=== PATIENT | female | born 1970 | race Caucasian/White ===

== ENCOUNTER 2016-03-03 13:02 | Emergency (ER) | payer BC ==
--- NOTE | 2016-03-03 13:36 | ED NURSING NOTES ---
Clinical Report - Nurses [facility] [address] [place] [address] 03/03/2016 13:02 Patient: LOUIS WEISS TRIAGE Triage time 13:11 Mar 03 2016. Acuity: LEVEL 3. Chief Complaint: (cough and short of breath). 13:14 03/03/16. --13:14 Rosa Maria Norman R.N. 13:10 03/03/16. BP: 151/92. HR: 82. RR: 20. O2 saturation: 100%. Temp: 98.1 F. Pain level now: 10/08. --13:14 Rosa Maria Norman R.N. Weight: 87.5 kg stated. Height/Length: 65 inches Per Patient. BMI: 32.1. --13:09 Rosa Maria Norman R.N. Medications Albuterol Sulfate Inhalation. Atrovent HFA Inhalation. Flovent HFA Inhalation. Levothyroxine Sodium Oral, daily. Lisinopril Oral. NexIUM Oral. --13:13 Rosa Maria Norman R.N. Allergies Amoxicillin. Baclofen. Erythromycin. Hydrochlorothiazide. Latex. Zofran. --13:13 Rosa Maria Norman R.N. Medication/allergy information source: the patient. --13:14 Rosa Maria Norman R.N. History Arrived by private vehicle. Historian: patient. Accompanied by friend. Primary physician (Kendra). Onset. (5 days ago, worse since wednesday). She has had weakness, a cough and difficulty breathing. Reports muscle aches. No fever or skin rash. 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 PAST MEDICAL HX: The patient has had a hysterectomy. SOCIAL HX: Former smoker. Occasional alcohol use. No drug use. No infectious disease exposure. ABUSE ASSESSMENT: No report of abuse. SELF HARM ASSESSMENT: A self harm assessment was performed. The patient answered "no" to the question "Have you recently felt down, depressed, or hopeless?", "Have you noticed less interest or pleasure in doing things?", "Do you have thoughts of harming or killing yourself?", "Are you here because you tried to hurt yourself?", "Have you ever tried to hurt yourself before today?", "Have you recently had thoughts about harming or killing others?" and "Do you have any dangerous items in your possession?". FALL RISK ASSESSMENT: Fall risk assessment completed. No fall risk identified. NUTRITIONAL RISK ASSESSMENT: The nutritional risk assessment revealed no deficiencies. FUNCTIONAL ASSESSMENT: Functional assessment: no impairments noted. LEARNING NEEDS ASSESSMENT: The learning needs assessment revealed no barriers. SKIN INTEGRITY ASSESSMENT: Skin integrity risk assessment completed. No skin integrity risk identified. --13:14 Rosa Maria Norman R.N. PROBLEMS: Otitis Media. Thyroid Disease. Myofascial Strain. DVT - Deep Venous Thrombosis. Depression. Fibromyalgia. Hypertension. Asthma. --13:13 Rosa Maria Norman R.N. ADDITIONAL SURGERIES: Bladder Suspension. Hysterectomy. Nasal septoplasty. Thyroid Surgery. --13:13 Rosa Maria Norman R.N. Interventions ID band on patient. --13:14 Rosa Maria Norman R.N. PHYSICAL ASSESSMENT 13:20 03/03/16. Ambulatory to room. GENERAL / NEURO / PSYCH: Alert. Oriented X 4. HEENT: Pupils equal, round and reactive to light. No facial asymmetry noted. No pharyngeal erythema. No sinus tenderness present or nasal discharge. Mucous membranes are pink. RESPIRATORY: Respirations not labored. The patient can speak in full sentences. Chest nontender. Expiratory wheezes in the right and left upper lung posteriorly (quiet). ( pain in mid chest with cough). CVS: Capillary refill less than 2 seconds. Pulses within normal limits. GI / : Abdomen soft. SKIN: Skin intact. Skin is warm and dry. Normal skin turgor. --13:20 Rosa Maria Norman R.N. NURSING PROGRESS NOTES 13:16 03/03/16. The initial plan of care for this patient includes an assessment with efforts to address the presence of pain; impairment of the respiratory system. This plan of care was discussed with the patient. Patient gowned. Reassurance given. Two patient identifiers checked. Call light placed in reach. Side rails up x 1. Bed placed in lowest position. Brakes of bed on. Patient ready for evaluation. --13:16 Rosa Maria Norman R.N. 13:50 03/03/16. ( Patient now reporting sulfa allergy. DC meds to be changed by WELDER HELPER). --13:50 Rosa Maria Norman R.N. DISPOSITION / DISCHARGE 13:53 03/03/16. Condition at departure: unchanged and stable. The goals identified in the patient's plan of care were met. No learning barriers present. Reviewed medication(s) side effects, precautions, dosing and course information. Prescription(s) given to the patient. Reviewed referral to a primary care physician for followup. Summary of care provided to patient. Patient verbalized understanding. Written instructions provided in [place]ian. The patient was discharged home and accompanied by paper reclaiming machine operator. She left the Emergency Department ambulatory and via private vehicle. Director Of Manufacturing driving. FALL RISK ASSESSMENT: Fall risk assessment completed. No fall risk identified. --13:53 Rosa Maria Norman R.N. 13:10 03/03/16. BP: 151/92. HR: 82. RR: 20. O2 saturation: 100%. Temp: 98.1 F. Pain level now: 10/08. --13:53 Rosa Maria Norman R.N. Departure time: 13:53 Mar 03 2016. --13:53 Rosa Maria Norman R.N. Locked/Released at 03/03/2016 13:54 by Rosa Maria Norman R.N.
--- NOTE | 2016-03-03 13:36 | ED CLINICAL REPORT ---
Clinical Report - Physicians/Mid Levels [facility] [address] [place] [address] 03/03/2016 13:02 Patient: LOUIS WEISS Time Seen: 13:27; initial patient contact, initial documentation, patient care assumed. Arrived- By private vehicle. Historian- patient. HISTORY OF PRESENT ILLNESS Chief Complaint: WHEEZING and HISTORY OF ASTHMA. This started about 5 days ago and is still present. The dyspnea is described as mild. The patient has had a moderate dry cough. No sputum production, orthopnea or chest pain or discomfort. See nurses notes for current asthma threapy. Asthma triggers: unknown. Takes asthma medications (inhaled albuterol, albuterol by nebulizer) (states this feels more than just her asthma, she feels like she is getting pneumonia). Similar symptoms previously: Chronically, worse. Recent medical care: Not recently seen/assessed. REVIEW OF SYSTEMS No sore throat, nasal discharge, sinus drainage or chills. She has had fever of 100 F and mild, generalized muscle aches. All systems otherwise negative, except as recorded above. PAST HISTORY See nurses notes. PROBLEMS: Otitis Media. Thyroid Disease. Myofascial Strain. DVT - Deep Venous Thrombosis. Depression. Fibromyalgia. Hypertension. Asthma. --13:13 Rosa Maria Norman R.N. ADDITIONAL SURGERIES: Bladder Suspension. Hysterectomy. Nasal septoplasty. Thyroid Surgery. --13:13 Rosa Maria Norman R.N. SOCIAL HISTORY Former smoker. Occasional alcohol use. No drug use. No recent travel. Is a local resident. FAMILY HISTORY Negative. ADDITIONAL NOTES The nursing notes have been reviewed with agreement regarding the chief complaint, HPI, ROS, PMH and patient medications and allergies. PHYSICAL EXAM Vital Signs: 03/03/2016 13:10 BP: 151/92. HR: 82. RR: 20. O2 saturation: 100%. Temp: 98.1 F. Pain level now: 8/10. Have been reviewed as abnormal and appear to be correct. Hypertensive. Heart rate normal. Respiratory rate normal. Temperature normal. Oxygen saturation normal. Appearance: Alert. No acute distress. Eyes: Pupils equal, round and reactive to light. Eyes normal inspection. ENT: Ears normal. Nose normal. Pharynx normal. Uvula midline. Neck: Normal inspection. Neck supple. CVS: Normal heart rate and rhythm. Heart sounds normal. Pulses normal. Respiratory: No respiratory distress. Breath sounds abnormal. Inspiratory mild wheezes in the right lung base posteriorly (very mild). Abdomen: Mildly obese. Back: Normal inspection. Skin: Skin warm and dry. Normal skin color. No rash. Normal skin turgor. Extremities: Extremities exhibit normal ROM. No lower extremity edema. Neuro: Oriented X 3. No motor deficit. No sensory deficit. PROGRESS AND PROCEDURES Patient counseled in person regarding the patient's stable condition and diagnosis. 13:36. Differential Diagnosis: Other possible considerations: asthma, flu, viral illness, uri, sinusitis, bronchitis, pneumonia. Above considerations are based on history and physical exam. Differential diagnosis was discussed with patient. Disposition: Discharged home in good and unchanged condition (13:36). Condition: good and stable. CLINICAL IMPRESSION Acute bacterial bronchitis associated with asthma. INSTRUCTIONS Alternate Tylenol (Acetaminophen) and Motrin (Ibuprofen) for fever, temperature greater than 101 degrees orally. Take according to label instructions. Avoid tobacco smoke. Warnings: GENERAL WARNINGS: Return or contact your physician immediately if your condition worsens or changes unexpectedly, if not improving as expected, or if other problems arise. Specifically return if problem worsens. Prescription Medications: Prednisone 20 mg: take 3 orally every day for 5 days. Dispense fifteen (15). No refills. Keflex 500 mg: take 1 capsule orally every 8 hours for 10 days. No refill. Follow-up: Follow up with your doctor in about three days even if well. Call for an appointment. Summary of care provided to patient. Understanding of the discharge instructions verbalized by patient. (Electronically signed by Sylwia Kimball A.R.N.P. 03/03/2016 14:25)
--- NOTE | 2016-03-03 13:36 | ED NURSING NOTES ---
Clinical Report - Nurses [facility] [address] [place] [address] 03/03/2016 13:02 Patient: LOUIS WEISS TRIAGE Triage time 13:11 Mar 03 2016. Acuity: LEVEL 3. Chief Complaint: (cough and short of breath). 13:14 03/03/16. --13:14 Rosa Maria Norman R.N. 13:10 03/03/16. BP: 151/92. HR: 82. RR: 20. O2 saturation: 100%. Temp: 98.1 F. Pain level now: 10/08. --13:14 Rosa Maria Norman R.N. Weight: 87.5 kg stated. Height/Length: 65 inches Per Patient. BMI: 32.1. --13:09 Rosa Maria Norman R.N. Medications Albuterol Sulfate Inhalation. Atrovent HFA Inhalation. Flovent HFA Inhalation. Levothyroxine Sodium Oral, daily. Lisinopril Oral. NexIUM Oral. --13:13 Rosa Maria Norman R.N. Allergies Amoxicillin. Baclofen. Erythromycin. Hydrochlorothiazide. Latex. Zofran. --13:13 Rosa Maria Norman R.N. Medication/allergy information source: the patient. --13:14 Rosa Maria Norman R.N. History Arrived by private vehicle. Historian: patient. Accompanied by friend. Primary physician (Kendra). Onset. (5 days ago, worse since wednesday). She has had weakness, a cough and difficulty breathing. Reports muscle aches. No fever or skin rash. 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 PAST MEDICAL HX: The patient has had a hysterectomy. SOCIAL HX: Former smoker. Occasional alcohol use. No drug use. No infectious disease exposure. ABUSE ASSESSMENT: No report of abuse. SELF HARM ASSESSMENT: A self harm assessment was performed. The patient answered "no" to the question "Have you recently felt down, depressed, or hopeless?", "Have you noticed less interest or pleasure in doing things?", "Do you have thoughts of harming or killing yourself?", "Are you here because you tried to hurt yourself?", "Have you ever tried to hurt yourself before today?", "Have you recently had thoughts about harming or killing others?" and "Do you have any dangerous items in your possession?". FALL RISK ASSESSMENT: Fall risk assessment completed. No fall risk identified. NUTRITIONAL RISK ASSESSMENT: The nutritional risk assessment revealed no deficiencies. FUNCTIONAL ASSESSMENT: Functional assessment: no impairments noted. LEARNING NEEDS ASSESSMENT: The learning needs assessment revealed no barriers. SKIN INTEGRITY ASSESSMENT: Skin integrity risk assessment completed. No skin integrity risk identified. --13:14 Rosa Maria Norman R.N. PROBLEMS: Otitis Media. Thyroid Disease. Myofascial Strain. DVT - Deep Venous Thrombosis. Depression. Fibromyalgia. Hypertension. Asthma. --13:13 Rosa Maria Norman R.N. ADDITIONAL SURGERIES: Bladder Suspension. Hysterectomy. Nasal septoplasty. Thyroid Surgery. --13:13 Rosa Maria Norman R.N. Interventions ID band on patient. --13:14 Rosa Maria Norman R.N. PHYSICAL ASSESSMENT 13:20 03/03/16. Ambulatory to room. GENERAL / NEURO / PSYCH: Alert. Oriented X 4. HEENT: Pupils equal, round and reactive to light. No facial asymmetry noted. No pharyngeal erythema. No sinus tenderness present or nasal discharge. Mucous membranes are pink. RESPIRATORY: Respirations not labored. The patient can speak in full sentences. Chest nontender. Expiratory wheezes in the right and left upper lung posteriorly (quiet). ( pain in mid chest with cough). CVS: Capillary refill less than 2 seconds. Pulses within normal limits. GI / : Abdomen soft. SKIN: Skin intact. Skin is warm and dry. Normal skin turgor. --13:20 Rosa Maria Norman R.N. NURSING PROGRESS NOTES 13:16 03/03/16. The initial plan of care for this patient includes an assessment with efforts to address the presence of pain; impairment of the respiratory system. This plan of care was discussed with the patient. Patient gowned. Reassurance given. Two patient identifiers checked. Call light placed in reach. Side rails up x 1. Bed placed in lowest position. Brakes of bed on. Patient ready for evaluation. --13:16 Rosa Maria Norman R.N. 13:50 03/03/16. ( Patient now reporting sulfa allergy. DC meds to be changed by MOTION STUDY ENGINEER). --13:50 Rosa Maria Norman R.N. DISPOSITION / DISCHARGE 13:53 03/03/16. Condition at departure: unchanged and stable. The goals identified in the patient's plan of care were met. No learning barriers present. Reviewed medication(s) side effects, precautions, dosing and course information. Prescription(s) given to the patient. Reviewed referral to a primary care physician for followup. Summary of care provided to patient. Patient verbalized understanding. Written instructions provided in [place]ian. The patient was discharged home and accompanied by cryptologic linguist. She left the Emergency Department ambulatory and via private vehicle. Financial Analyst Accountant driving. FALL RISK ASSESSMENT: Fall risk assessment completed. No fall risk identified. --13:53 Rosa Maria Norman R.N. 13:10 03/03/16. BP: 151/92. HR: 82. RR: 20. O2 saturation: 100%. Temp: 98.1 F. Pain level now: 10/08. --13:53 Rosa Maria Norman R.N. Departure time: 13:53 Mar 03 2016. --13:53 Rosa Maria Norman R.N. Locked/Released at 03/03/2016 13:54 by Rosa Maria Norman R.N.
--- NOTE | 2016-03-03 14:25 | ED MED RECONCILIATION SUMMARY ---
Patient: LOUIS WEISS Medication Reconciliation Report [facility] VisitID: [id number] [address] [place] [address] 45y, F Registration Date/Time: 03/03/2016 Weight: 87.5 kg Height/Length: 65 in. BMI: 32.1 ALLERGIES: Amoxicillin, Baclofen, Erythromycin, Hydrochlorothiazide, Latex, Zofran The patient's Home Medications are listed below: THE FOLLOWING MEDICATIONS NEED TO BE RECONCILED: Albuterol Sulfate Inhalation Atrovent HFA Inhalation Flovent HFA Inhalation Levothyroxine Sodium Oral, daily Lisinopril Oral NexIUM Oral The source(s) of the original Home Medication information: patient The following Medications were given to the patient in the Emergency Department: None. The following Medications were prescribed to the patient: Prednisone 20 mg: take 3 orally every day for 5 days. Dispense fifteen (15). No refills. -- Sylwia Kimball A.R.NGildardoP. Keflex 500 mg: take 1 capsule orally every 8 hours for 10 days. No refill. -- Sylwia Kimball A.R.N.P.
--- NOTE | 2016-03-03 14:25 | ED MAR SUMMARY ---
..... Medication Administration Record [facility] [address] [place] [address] Patient: LOUIS WEISS Visit ID: [id number] 45y, F Weight: 87.5 kg Height/Length: 65 in BMI: 32.1 ALLERGIES: Amoxicillin, Baclofen, Erythromycin, Hydrochlorothiazide, Latex, Zofran
--- NOTE | 2016-03-03 14:25 | ED MED RECONCILIATION SUMMARY ---
Patient: LOUIS WEISS Medication Reconciliation Report [facility] VisitID: [id number] [address] [place] [address] 45y, F Registration Date/Time: 03/03/2016 Weight: 87.5 kg Height/Length: 65 in. BMI: 32.1 ALLERGIES: Amoxicillin, Baclofen, Erythromycin, Hydrochlorothiazide, Latex, Zofran The patient's Home Medications are listed below: THE FOLLOWING MEDICATIONS NEED TO BE RECONCILED: Albuterol Sulfate Inhalation Atrovent HFA Inhalation Flovent HFA Inhalation Levothyroxine Sodium Oral, daily Lisinopril Oral NexIUM Oral The source(s) of the original Home Medication information: patient The following Medications were given to the patient in the Emergency Department: None. The following Medications were prescribed to the patient: Prednisone 20 mg: take 3 orally every day for 5 days. Dispense fifteen (15). No refills. -- Sylwia Kimball A.R.NGildardoP. Keflex 500 mg: take 1 capsule orally every 8 hours for 10 days. No refill. -- Sylwia Kimball A.R.N.P.
--- NOTE | 2016-03-03 14:25 | ED DISCHARGE INSTRUCTIONS ---
Patient: LOUIS WEISS General Instructions [facility] VisitID: [id number] [place] [address] 45y, F Registration Date/Time: 03/03/2016 Acute bacterial bronchitis associated with asthma. INSTRUCTIONS Alternate Tylenol (Acetaminophen) and Motrin (Ibuprofen) for fever, temperature greater than 101 degrees orally. Take according to label instructions. Avoid tobacco smoke. Warnings: GENERAL WARNINGS: Return or contact your physician immediately if your condition worsens or changes unexpectedly, if not improving as expected, or if other problems arise. Specifically return if problem worsens. Prescription Medications: Prednisone 20 mg: take 3 orally every day for 5 days. Dispense fifteen (15). No refills. Keflex 500 mg: take 1 capsule orally every 8 hours for 10 days. No refill. Follow-up: Follow up with your doctor in about three days even if well. Call for an appointment. Summary of care provided to patient. Understanding of the discharge instructions verbalized by patient. ADDITIONAL INFORMATION Bronchitis (Adult: Abx Tx) BRONCHITIS is an infection of the air passages (bronchial tubes). It often occurs during the common cold. Symptoms include cough with mucus (phlegm) and low-grade fever. Bronchitis usually lasts 7-14 days. Mild cases can be treated with simple home remedies. More severe infection is treated with an antibiotic. Home Care: If symptoms are severe, rest at home for the first 2-3 days. When you resume activity, don't let yourself get too tired. Do not smoke. Avoid being exposed to the smoke of others. You may use acetaminophen (Tylenol) or ibuprofen (Motrin, Advil) to control fever or pain, unless another medicine was prescribed for this. [NOTE: If you have chronic liver or kidney disease or ever had a stomach ulcer or GI bleeding, talk with your doctor before using these medicines.] Your appetite may be poor, so a light diet is fine. Avoid dehydration by drinking 6-8 glasses of fluids per day (water, soft, drinks, juices, tea, soup, etc.). Extra fluids will help loosen secretions in the lungs. Jbjc-gvo-kiftmzb cough medicines that containdextromethorphan(such as Robitussin DM) and decongestants (Actifed or Sudafed) may help relieve cough and congestion. [NOTE: Do not use decongestants if you have high blood pressure.] Finish all antibiotic medicine, even if you are feeling better after only a few days. Follow Up with your doctor or as directed if you dont start to feel better after three days. [NOTE: If you are age 65 or older, or if you have chronic asthma or COPD, we recommend a PNEUMOCOCCAL VACCINATION every five years and a yearly INFLUENZAVACCINATION (FLU-SHOT) every . Ask your doctor about this. If you had an X-ray, a radiologist will review it. You will be notified of any new findings that may affect your care.] Get Prompt Medical Attention if any of the following occur: Fever over 100.4F (38.0C) for more than three days Trouble breathing, wheezing or pain with breathing Coughing up blood or increased amounts of colored sputum Weakness, drowsiness, headache, facial pain, ear pain or a stiff neck Fever Control (Adult) A fever is a natural reaction of the body to an illness. In most cases, the temperature itself is not harmful. It actually helps the body fight infections. A fever does not need to be treated unless you feel very uncomfortable. Home Care If you feel warm, check your temperature. If you feel very uncomfortable and your temperature is at or higher than 100.4F (38C) oral, you may take acetaminophen (Tylenol) every 4 to 6 hours. If you cant take or keep down oral medicine, ask your pharmacist for Tylenol suppositories, which you can get without a prescription. If the fever does not respond to acetaminophen within 1 hour, take ibuprofen (Advil or Motrin). If this works, keep taking the ibuprofen every 6 to 8 hours. Note: If you have chronic liver or kidney disease or ever had a stomach ulcer or GI bleeding, talk with your doctor before using these medications. If either medication alone does not keep the fever down, you may alternate the two medicines every 3 to 4 hours, only if your healthcare provider has instructed you to do so. For example, take Motrin then wait 3 hours, take Tylenol then wait 3 hours, take Motrin, and so on. Follow your healthcare providers instructions exactly. Clothing: Keep clothing light because excess body heat is lost through the skin. The fever will go up if you wear extra layers or wrap in blankets. Fluids: Fever causes the body to lose water through evaporation. Drink plenty of fluids such as water, juice, clear sodas, arslan victor manuel, or lemonade. Do not use aspirin in anyone under 18 years of age who is ill with a fever. It can cause severe liver damage. Follow Up with your doctor or as advised by our staff if you do not get better after 48 hours. Get Prompt Medical Attention if any of the following occur: Fever does not get better after taking fever medication Fast or difficult breathing Earache, sinus pain, stiff or painful neck, headache, repeated diarrhea or vomiting You feel unusually irritable, drowsy, or confused A rash appears You feel weak or dizzy, or that you might faint Prednisone Oral tablet What is this medicine? PREDNISONE (PRED ni sone) is a corticosteroid. It is commonly used to treat inflammation of the skin, joints, lungs, and other organs. Common conditions treated include asthma, allergies, and arthritis. It is also used for other conditions, such as blood disorders and diseases of the adrenal glands. How should I use this medicine? Take this medicine by mouth with a glass of water. Follow the directions on the prescription label. Take this medicine with food. If you are taking this medicine once a day, take it in the morning. Do not take more medicine than you are told to take. Do not suddenly stop taking your medicine because you may develop a severe reaction. Your doctor will tell you how much medicine to take. If your doctor wants you to stop the medicine, the dose may be slowly lowered over time to avoid any side effects. Talk to your insurance representative regarding the use of this medicine in children. Special care may be needed. What side effects may I notice from receiving this medicine? Side effects that you should report to your doctor or health lead caregiver as soon as possible: allergic reactions like skin rash, itching or hives, swelling of the face, lips, or tongue changes in emotions or moods changes in vision depressed mood eye pain fever or chills, cough, sore throat, pain or difficulty passing urine increased thirst swelling of ankles, feet Side effects that usually do not require medical attention (report to your doctor or health lead caregiver if they continue or are bothersome): confusion, excitement, restlessness headache nausea, vomiting skin problems, acne, thin and shiny skin trouble sleeping weight gain What may interact with this medicine? Do not take this medicine with any of the following medications: metyrapone mifepristone This medicine may also interact with the following medications: aminoglutethimide amphotericin B aspirin and aspirin-like medicines barbiturates certain medicines for diabetes, like glipizide or glyburide cholestyramine cholinesterase inhibitors cyclosporine digoxin diuretics ephedrine female hormones, like estrogens and control pills isoniazid ketoconazole NSAIDS, medicines for pain and inflammation, like ibuprofen or naproxen phenytoin rifampin toxoids vaccines warfarin What if I miss a dose? If you miss a dose, take it as soon as you can. If it is almost time for your next dose, talk to your doctor or health lead caregiver. You may need to miss a dose or take an extra dose. Do not take double or extra doses without advice. Where should I keep my medicine? Keep out of the reach of children. Store at room temperature between 15 and 30 degrees C (59 and 86 degrees F). Protect from light. Keep container tightly closed. Throw away any unused medicine after the expiration date. What should I tell my health care provider before I take this medicine? They need to know if you have any of these conditions: Mk's syndrome diabetes glaucoma heart disease high blood pressure infection (especially a virus infection such as chickenpox, cold sores, or herpes) kidney disease liver disease mental illness myasthenia gravis osteoporosis seizures stomach or intestine problems thyroid disease an unusual or allergic reaction to lactose, prednisone, other medicines, foods, dyes, or preservatives or trying to get breast-feeding What should I watch for while using this medicine? Visit your doctor or health lead caregiver for regular checks on your progress. If you are taking this medicine over a prolonged period, carry an identification card with your name and address, the type and dose of your medicine, and your doctor's name and address. This medicine may increase your risk of getting an infection. Tell your doctor or health lead caregiver if you are around anyone with measles or chickenpox, or if you develop sores or blisters that do not heal properly. If you are going to have surgery, tell your doctor or health lead caregiver that you have taken this medicine within the last twelve months. Ask your doctor or health lead caregiver about your diet. You may need to lower the amount of salt you eat. This medicine may affect blood sugar levels. If you have diabetes, check with your doctor or health lead caregiver before you change your diet or the dose of your diabetic medicine. Cephalexin Monohydrate Oral tablet What is this medicine? CEPHALEXIN (sef a ERIN in) is a cephalosporin antibiotic. It is used to treat certain kinds of bacterial infections It will not work for colds, flu, or other viral infections. How should I use this medicine? Take this medicine by mouth with a full glass of water. Follow the directions on the prescription label. This medicine can be taken with or without food. Take your medicine at regular intervals. Do not take your medicine more often than directed. Take all of your medicine as directed even if you think you are better. Do not skip doses or stop your medicine early. Talk to your insurance representative regarding the use of this medicine in children. While this drug may be prescribed for selected conditions, precautions do apply. What side effects may I notice from receiving this medicine? Side effects that you should report to your doctor or health lead caregiver as soon as possible: allergic reactions like skin rash, itching or hives, swelling of the face, lips, or tongue breathing problems pain or trouble passing urine redness, blistering, peeling or loosening of the skin, including inside the mouth severe or watery diarrhea unusually weak or tired yellowing of the eyes, skin Side effects that usually do not require medical attention (report to your doctor or health lead caregiver if they continue or are bothersome): gas or heartburn genital or anal irritation headache joint or muscle pain nausea, vomiting What may interact with this medicine? probenecid some other antibiotics What if I miss a dose? If you miss a dose, take it as soon as you can. If it is almost time for your next dose, take only that dose. Do not take double or extra doses. There should be at least 4 to 6 hours between doses. Where should I keep my medicine? Keep out of the reach of children. Store at room temperature between 59 and 86 degrees F (15 and 30 degrees C). Throw away any unused medicine after the expiration date. What should I tell my health care provider before I take this medicine? They need to know if you have any of these conditions: kidney disease stomach or intestine problems, especially colitis an unusual or allergic reaction to cephalexin, other cephalosporins, penicillins, other antibiotics, medicines, foods, dyes or preservatives or trying to get breast-feeding What should I watch for while using this medicine? Tell your doctor or health lead caregiver if your symptoms do not begin to improve in a few days. Do not treat diarrhea with over the counter products. Contact your doctor if you have diarrhea that lasts more than 2 days or if it is severe and watery. If you have diabetes, you may get a false-positive result for sugar in your urine. Check with your doctor or health lead caregiver. You have been given the following additional information: Bronchitis, Antiobiotic Treatment (Adult) Fever Control (Adult) Prednisone Oral tablet Cephalexin Monohydrate Oral tablet (Electronically signed by Sylwia Kimball A.R.N.P. 03/03/2016 14:25)
--- NOTE | 2016-03-03 14:25 | ED MAR SUMMARY ---
..... Medication Administration Record [facility] [address] [place] [address] Patient: LOUIS WEISS Visit ID: [id number] 45y, F Weight: 87.5 kg Height/Length: 65 in BMI: 32.1 ALLERGIES: Amoxicillin, Baclofen, Erythromycin, Hydrochlorothiazide, Latex, Zofran
--- NOTE | 2016-03-03 14:25 | ED DISCHARGE INSTRUCTIONS ---
Patient: LOUIS WEISS General Instructions [facility] VisitID: [id number] [place] [address] 45y, F Registration Date/Time: 03/03/2016 Acute bacterial bronchitis associated with asthma. INSTRUCTIONS Alternate Tylenol (Acetaminophen) and Motrin (Ibuprofen) for fever, temperature greater than 101 degrees orally. Take according to label instructions. Avoid tobacco smoke. Warnings: GENERAL WARNINGS: Return or contact your physician immediately if your condition worsens or changes unexpectedly, if not improving as expected, or if other problems arise. Specifically return if problem worsens. Prescription Medications: Prednisone 20 mg: take 3 orally every day for 5 days. Dispense fifteen (15). No refills. Keflex 500 mg: take 1 capsule orally every 8 hours for 10 days. No refill. Follow-up: Follow up with your doctor in about three days even if well. Call for an appointment. Summary of care provided to patient. Understanding of the discharge instructions verbalized by patient. ADDITIONAL INFORMATION Bronchitis (Adult: Abx Tx) BRONCHITIS is an infection of the air passages (bronchial tubes). It often occurs during the common cold. Symptoms include cough with mucus (phlegm) and low-grade fever. Bronchitis usually lasts 7-14 days. Mild cases can be treated with simple home remedies. More severe infection is treated with an antibiotic. Home Care: If symptoms are severe, rest at home for the first 2-3 days. When you resume activity, don't let yourself get too tired. Do not smoke. Avoid being exposed to the smoke of others. You may use acetaminophen (Tylenol) or ibuprofen (Motrin, Advil) to control fever or pain, unless another medicine was prescribed for this. [NOTE: If you have chronic liver or kidney disease or ever had a stomach ulcer or GI bleeding, talk with your doctor before using these medicines.] Your appetite may be poor, so a light diet is fine. Avoid dehydration by drinking 6-8 glasses of fluids per day (water, soft, drinks, juices, tea, soup, etc.). Extra fluids will help loosen secretions in the lungs. Ybfa-dzp-ddlvqwe cough medicines that containdextromethorphan(such as Robitussin DM) and decongestants (Actifed or Sudafed) may help relieve cough and congestion. [NOTE: Do not use decongestants if you have high blood pressure.] Finish all antibiotic medicine, even if you are feeling better after only a few days. Follow Up with your doctor or as directed if you dont start to feel better after three days. [NOTE: If you are age 65 or older, or if you have chronic asthma or COPD, we recommend a PNEUMOCOCCAL VACCINATION every five years and a yearly INFLUENZAVACCINATION (FLU-SHOT) every . Ask your doctor about this. If you had an X-ray, a radiologist will review it. You will be notified of any new findings that may affect your care.] Get Prompt Medical Attention if any of the following occur: Fever over 100.4F (38.0C) for more than three days Trouble breathing, wheezing or pain with breathing Coughing up blood or increased amounts of colored sputum Weakness, drowsiness, headache, facial pain, ear pain or a stiff neck Fever Control (Adult) A fever is a natural reaction of the body to an illness. In most cases, the temperature itself is not harmful. It actually helps the body fight infections. A fever does not need to be treated unless you feel very uncomfortable. Home Care If you feel warm, check your temperature. If you feel very uncomfortable and your temperature is at or higher than 100.4F (38C) oral, you may take acetaminophen (Tylenol) every 4 to 6 hours. If you cant take or keep down oral medicine, ask your pharmacist for Tylenol suppositories, which you can get without a prescription. If the fever does not respond to acetaminophen within 1 hour, take ibuprofen (Advil or Motrin). If this works, keep taking the ibuprofen every 6 to 8 hours. Note: If you have chronic liver or kidney disease or ever had a stomach ulcer or GI bleeding, talk with your doctor before using these medications. If either medication alone does not keep the fever down, you may alternate the two medicines every 3 to 4 hours, only if your healthcare provider has instructed you to do so. For example, take Motrin then wait 3 hours, take Tylenol then wait 3 hours, take Motrin, and so on. Follow your healthcare providers instructions exactly. Clothing: Keep clothing light because excess body heat is lost through the skin. The fever will go up if you wear extra layers or wrap in blankets. Fluids: Fever causes the body to lose water through evaporation. Drink plenty of fluids such as water, juice, clear sodas, arslan victor manuel, or lemonade. Do not use aspirin in anyone under 18 years of age who is ill with a fever. It can cause severe liver damage. Follow Up with your doctor or as advised by our staff if you do not get better after 48 hours. Get Prompt Medical Attention if any of the following occur: Fever does not get better after taking fever medication Fast or difficult breathing Earache, sinus pain, stiff or painful neck, headache, repeated diarrhea or vomiting You feel unusually irritable, drowsy, or confused A rash appears You feel weak or dizzy, or that you might faint Prednisone Oral tablet What is this medicine? PREDNISONE (PRED ni sone) is a corticosteroid. It is commonly used to treat inflammation of the skin, joints, lungs, and other organs. Common conditions treated include asthma, allergies, and arthritis. It is also used for other conditions, such as blood disorders and diseases of the adrenal glands. How should I use this medicine? Take this medicine by mouth with a glass of water. Follow the directions on the prescription label. Take this medicine with food. If you are taking this medicine once a day, take it in the morning. Do not take more medicine than you are told to take. Do not suddenly stop taking your medicine because you may develop a severe reaction. Your doctor will tell you how much medicine to take. If your doctor wants you to stop the medicine, the dose may be slowly lowered over time to avoid any side effects. Talk to your police clerk regarding the use of this medicine in children. Special care may be needed. What side effects may I notice from receiving this medicine? Side effects that you should report to your doctor or health day care attendant as soon as possible: allergic reactions like skin rash, itching or hives, swelling of the face, lips, or tongue changes in emotions or moods changes in vision depressed mood eye pain fever or chills, cough, sore throat, pain or difficulty passing urine increased thirst swelling of ankles, feet Side effects that usually do not require medical attention (report to your doctor or health day care attendant if they continue or are bothersome): confusion, excitement, restlessness headache nausea, vomiting skin problems, acne, thin and shiny skin trouble sleeping weight gain What may interact with this medicine? Do not take this medicine with any of the following medications: metyrapone mifepristone This medicine may also interact with the following medications: aminoglutethimide amphotericin B aspirin and aspirin-like medicines barbiturates certain medicines for diabetes, like glipizide or glyburide cholestyramine cholinesterase inhibitors cyclosporine digoxin diuretics ephedrine female hormones, like estrogens and control pills isoniazid ketoconazole NSAIDS, medicines for pain and inflammation, like ibuprofen or naproxen phenytoin rifampin toxoids vaccines warfarin What if I miss a dose? If you miss a dose, take it as soon as you can. If it is almost time for your next dose, talk to your doctor or health day care attendant. You may need to miss a dose or take an extra dose. Do not take double or extra doses without advice. Where should I keep my medicine? Keep out of the reach of children. Store at room temperature between 15 and 30 degrees C (59 and 86 degrees F). Protect from light. Keep container tightly closed. Throw away any unused medicine after the expiration date. What should I tell my health care provider before I take this medicine? They need to know if you have any of these conditions: Mk's syndrome diabetes glaucoma heart disease high blood pressure infection (especially a virus infection such as chickenpox, cold sores, or herpes) kidney disease liver disease mental illness myasthenia gravis osteoporosis seizures stomach or intestine problems thyroid disease an unusual or allergic reaction to lactose, prednisone, other medicines, foods, dyes, or preservatives or trying to get breast-feeding What should I watch for while using this medicine? Visit your doctor or health day care attendant for regular checks on your progress. If you are taking this medicine over a prolonged period, carry an identification card with your name and address, the type and dose of your medicine, and your doctor's name and address. This medicine may increase your risk of getting an infection. Tell your doctor or health day care attendant if you are around anyone with measles or chickenpox, or if you develop sores or blisters that do not heal properly. If you are going to have surgery, tell your doctor or health day care attendant that you have taken this medicine within the last twelve months. Ask your doctor or health day care attendant about your diet. You may need to lower the amount of salt you eat. This medicine may affect blood sugar levels. If you have diabetes, check with your doctor or health day care attendant before you change your diet or the dose of your diabetic medicine. Cephalexin Monohydrate Oral tablet What is this medicine? CEPHALEXIN (sef a ERIN in) is a cephalosporin antibiotic. It is used to treat certain kinds of bacterial infections It will not work for colds, flu, or other viral infections. How should I use this medicine? Take this medicine by mouth with a full glass of water. Follow the directions on the prescription label. This medicine can be taken with or without food. Take your medicine at regular intervals. Do not take your medicine more often than directed. Take all of your medicine as directed even if you think you are better. Do not skip doses or stop your medicine early. Talk to your police clerk regarding the use of this medicine in children. While this drug may be prescribed for selected conditions, precautions do apply. What side effects may I notice from receiving this medicine? Side effects that you should report to your doctor or health day care attendant as soon as possible: allergic reactions like skin rash, itching or hives, swelling of the face, lips, or tongue breathing problems pain or trouble passing urine redness, blistering, peeling or loosening of the skin, including inside the mouth severe or watery diarrhea unusually weak or tired yellowing of the eyes, skin Side effects that usually do not require medical attention (report to your doctor or health day care attendant if they continue or are bothersome): gas or heartburn genital or anal irritation headache joint or muscle pain nausea, vomiting What may interact with this medicine? probenecid some other antibiotics What if I miss a dose? If you miss a dose, take it as soon as you can. If it is almost time for your next dose, take only that dose. Do not take double or extra doses. There should be at least 4 to 6 hours between doses. Where should I keep my medicine? Keep out of the reach of children. Store at room temperature between 59 and 86 degrees F (15 and 30 degrees C). Throw away any unused medicine after the expiration date. What should I tell my health care provider before I take this medicine? They need to know if you have any of these conditions: kidney disease stomach or intestine problems, especially colitis an unusual or allergic reaction to cephalexin, other cephalosporins, penicillins, other antibiotics, medicines, foods, dyes or preservatives or trying to get breast-feeding What should I watch for while using this medicine? Tell your doctor or health day care attendant if your symptoms do not begin to improve in a few days. Do not treat diarrhea with over the counter products. Contact your doctor if you have diarrhea that lasts more than 2 days or if it is severe and watery. If you have diabetes, you may get a false-positive result for sugar in your urine. Check with your doctor or health day care attendant. You have been given the following additional information: Bronchitis, Antiobiotic Treatment (Adult) Fever Control (Adult) Prednisone Oral tablet Cephalexin Monohydrate Oral tablet (Electronically signed by Sylwia Kimball A.R.N.P. 03/03/2016 14:25)
== END 2016-03-03 13:53 | disposition home or self-care (01) ==
LOC: ED SRH 13:02
DX: J20.8 Acute bronchitis due to other specified organisms (principal); B96.89 Other specified bacterial agents as the cause of diseases classified elsewhere; J45.909 Unspecified asthma, uncomplicated; I10 Essential (primary) hypertension; E07.9 Disorder of thyroid, unspecified; Z87.891 Personal history of nicotine dependence; Z88.0 Allergy status to penicillin; Z88.1 Allergy status to other antibiotic agents; Z88.8 Allergy status to other drugs, medicaments and biological substances; Z88.2 Allergy status to sulfonamides

== ENCOUNTER 2016-06-16 20:01 | Emergency (ER) | payer OTHER ==
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
--- NOTE | 2016-06-16 21:34 | ED ORDER SUMMARY ---
..... Patient: LOUIS WEISS OrderSheet [facility] VisitID: [id number] [place] [address] 45y, F Registration Date/Time: 06/16/2016 ORDER SHEET Weight: 95.2 kg (estimated) Allergies: Amoxicillin, Baclofen, Erythromycin, Hydrochlorothiazide, Latex, Zofran GENERAL ORDERS: Knee 4V Right Urgent (20:24 06/16/2016 EKoroleva P.A.-C) (Ack 20:27 CHategekimana) (20:40 CHatbrianekimana) Knee Immobilizer (21:32 06/16/2016 EKoroleva P.A.-C) (Ack 21:34 DDavis R.N.) (21:[address] Supervisor Of Engines) Crutches (21:32 06/16/2016 EKoroleva P.A.-C) (Ack 21:34 DDavis R.N.) (21:[address] Supervisor Of [employer]) MEDICATION ORDERS: Hydrocodone-APAP PO 10/650 mg (NOW, HIGH ALERT MEDICATION) (20:24 06/16/2016 EKoroleva P.A.-C) (20:31 DDavis R.N.) IV FLUIDS: ORDER SHEET NOTES: [Electronically signed by Mckinley Herrera R.N. (21:55 06/16/2016)] [Electronically signed by Kinza Hawthorne.A.-C (22:19 06/16/2016)] [Electronically locked/signed by Mckinley Herrera R.N. (21:55 06/16/2016)]
--- NOTE | 2016-06-16 21:34 | ED ORDER SUMMARY ---
..... Patient: LOUIS WEISS OrderSheet [facility] VisitID: [id number] [place] [address] 45y, F Registration Date/Time: 06/16/2016 ORDER SHEET Weight: 95.2 kg (estimated) Allergies: Amoxicillin, Baclofen, Erythromycin, Hydrochlorothiazide, Latex, Zofran GENERAL ORDERS: Knee 4V Right Urgent (20:24 06/16/2016 EKoroleva P.A.-C) (Ack 20:27 CHategekimana) (20:40 CHatbrianekimana) Knee Immobilizer (21:32 06/16/2016 EKoroleva P.A.-C) (Ack 21:34 DDavis R.N.) (21:54 [facility] Supervisor Webbing) Crutches (21:32 06/16/2016 EKoroleva P.A.-C) (Ack 21:34 DDavis R.N.) (21:54 [employer] [facility] Supervisor Webbing) MEDICATION ORDERS: Hydrocodone-APAP PO 10/650 mg (NOW, HIGH ALERT MEDICATION) (20:24 06/16/2016 EKoroleva P.A.-C) (20:31 DDavis R.N.) IV FLUIDS: ORDER SHEET NOTES: [Electronically signed by Mckinley Herrera R.N. (21:55 06/16/2016)] [Electronically signed by Kinza Hawthorne.A.-C (22:19 06/16/2016)] [Electronically locked/signed by Mckinley Herrera R.N. (21:55 06/16/2016)]
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
--- NOTE | 2016-06-16 21:59 | DIAGNOSTIC IMAGING REPORT ---
PROCEDURE: XR KNEE 4 VIEWS - RIGHT INDICATION: TRAUMA/INJURY TECHNIQUE: Seven views of the right knee. COMPARISON: None. FINDINGS: Normal mineralization. No fractures. Normal osseous alignment. No joint effusion. No suspicious soft-tissue calcification or radiodense foreign bodies. IMPRESSION: 1. Intact right knee.
--- NOTE | 2016-06-16 22:19 | ED MAR SUMMARY ---
..... Medication Administration Record [facility] [address] [place] [address] Patient: LOUIS WEISS Visit ID: [id number] 45y, F Weight: 95.2 kg Height/Length: 65 in BMI: 35 ALLERGIES: Amoxicillin, Baclofen, Erythromycin, Hydrochlorothiazide, Latex, Zofran Given 20:31 06/16/2016 Mckinley Herrera R.N. Medication Administered: HYDROCODONE-APAP [PO] (HYDROCODONE-ACETAMINOPHEN), Dose: 2 tab 5/325 mg Tablets PO. Medication Ordered: Hydrocodone-APAP PO 10/650 mg (NOW, HIGH ALERT MEDICATION).
--- NOTE | 2016-06-16 22:19 | ED MED RECONCILIATION SUMMARY ---
Patient: LOUIS WEISS Medication Reconciliation Report [facility] VisitID: [id number] [place] [address] 45y, F Registration Date/Time: 06/16/2016 Weight: 95.2 kg Height/Length: 65 in. BMI: 35.0 ALLERGIES: Amoxicillin, Baclofen, Erythromycin, Hydrochlorothiazide, Latex, Zofran The patient's Home Medications are listed below: THE FOLLOWING MEDICATIONS NEED TO BE RECONCILED: Albuterol Sulfate Inhalation Atrovent HFA Inhalation Flovent HFA Inhalation Levothyroxine Sodium Oral, daily Lisinopril Oral NexIUM Oral The source(s) of the original Home Medication information: Not obtained. The following Medications were given to the patient in the Emergency Department: Hydrocodone-APAP [PO] PO 2 tab, administered: 06/16/2016 8:31:00 PM The following Medications were prescribed to the patient: Hydrocodone/APAP 5mg / 325mg: take 1 orally every 6 hours as needed for pain. Dispense twelve (12). No refill. -- Kinza Hawthorne, P.A.-C Ibuprofen 800 mg tablets: take 1 tablet orally every 8 hours for 5 days, as needed for pain. Dispense fifteen (15). No refill. -- Kinza Hawthorne, P.A.-C
--- NOTE | 2016-06-16 22:19 | ED DISCHARGE INSTRUCTIONS ---
Patient: LOUIS WEISS General Instructions [facility] VisitID: [id number] [address] [place] [address] 45y, F Registration Date/Time: 06/16/2016 Sprain of the left knee. Contusion to the right knee. INSTRUCTIONS Apply ice. Use crutches. Wear knee immobilizer. Elevate affected areas above chest level. Do not go to school for four days. Prescription Medications: Hydrocodone/APAP 5mg / 325mg: take 1 orally every 6 hours as needed for pain. Dispense twelve (12). No refill. Ibuprofen 800 mg tablets: take 1 tablet orally every 8 hours for 5 days, as needed for pain. Dispense fifteen (15). No refill. Follow-up with: [facility], , [address], , [place], [id number] ADDITIONAL INFORMATION Sprain, Knee A sprain is an injury to the ligaments or capsule that holds a joint together. There are no broken bones. Most sprains take three to six weeks to heal. If the ligament is completely torn (severe sprain), it can take months to recover from. Most knee sprains are treated with a splint, knee immobilizer or elastic wrap for support. Severe sprains may require surgery. Home care The following guidelines will help you care for your injury at home: Stay off the injured leg as much as possible until you can walk on it without pain. If you have a lot of pain with walking, crutches or a walker may be prescribed. (These can be rented or purchased at many pharmacies and surgical or orthopedic supply stores). Follow your doctor's advice regarding when to begin bearing weight on that leg. Keep your leg elevated to reduce pain and swelling. When sleeping, place a pillow under the injured leg. When sitting, support the injured leg so it is level with your waist. This is very important during the first 48 hours. Apply an ice pack (ice cubes in a plastic bag, wrapped in a towel) over the injured area for 20 minutes every 12 hours the first day. You can place the ice pack directly over the splint. If a Velcro knee immobilizer was applied, you can open this to apply the ice pack directly to the knee. Continue with ice packs 34 times a day for the next two days, then as needed for the relief of pain and swelling. You may use acetaminophen or ibuprofen to control pain, unless another pain medicine was prescribed. If you have chronic liver or kidney disease or ever had a stomach ulcer or GI bleeding, talk with your doctor before using these medicines. If you were given a splint, keep it completely dry at all times. Bathe with your splint out of the water, protected with a large plastic bag, rubber-banded at the top end. If a fiberglass splint gets wet, you can dry it with a hair-dryer. If you have a Velcro knee immobilizer, you can remove this to bathe, unless told otherwise. Follow-up care Follow up with your doctor as advised. Any X-rays you had today dont show any broken bones, breaks, or fractures. Sometimes fractures dont show up on the first X-ray. Bruises and sprains can sometimes hurt as much as a fracture. These injuries can take time to heal completely. If your symptoms dont improve or they get worse, talk with your doctor. You may need a repeat X-ray. When to seek medical care Get prompt medical attention if any of the following occur: The plaster cast or splint becomes wet or soft The fiberglass cast or splint remains wet for more than 24 hours Pain or swelling increases Toes become cold, blue, numb or tingly Contusion:Lower Extremity You have a CONTUSION of your LOWER extremity (leg, knee, ankle, foot, or toes). This causes local pain, swelling and sometimes bruising. There are no broken bones. This injury may take from a few days to a few weeks to heal. Home Care: 1) Keep your leg elevated to reduce pain and swelling. When sleeping, place a pillow under the injured leg. When sitting, support the injured leg so it is level with your waist. This is very important during the first 48 hours. 2) If CRUTCHES have been advised, do not bear full weight on the injured leg until you can do so without pain. You may return to sports when you are able to hop and run on the injured leg without pain. 3) Apply an ice pack (ice cubes in a plastic bag, wrapped in a towel) over the injured area for 20 minutes every 1-2 hours the first day for pain relief. Continue this 3-4 times a day until the pain and swelling goes away. 4) You may use acetaminophen (Tylenol) or ibuprofen (Motrin, Advil) to control pain, unless another pain medicine was prescribed. [ NOTE : If you have chronic liver or kidney disease or ever had a stomach ulcer or GI bleeding, talk with your doctor before using these medicines.] Follow Up with your doctor or this facility if you are not starting to improve within the next THREE days. [NOTE: If X-rays were taken, they will be reviewed by a radiologist. You will be notified of any new findings that may affect your care.] Get Prompt Medical Attention if any of the following occur: -- Pain or swelling increases -- Toes become cold, blue, numb or tingly -- Redness, warmth or drainage from the skin Crutch Walking Crutch Adjustment Make sure the crutches you use are adjusted to fit you. When you stand, there should be room to fit 2-3 fingers between the top of the crutch and your armpit. Your elbow should be slightly bent when holding the hand marketing information analyst. Crutch Walking: Place the crutches forward 12" in front of and 6" to the side of your feet. Lean your weight forward as you push down on the handgrips. Your weight should be on your hands and yourstrong leg, not your armpits . Let your body swing through, landing on the strong leg. Advance the crutches forward again. The crutch and the injured leg should move together. Going Up Steps: ("Up with the good") With both crutches on the same step as your feet, push down on the handgrips. Balancing with very light pressure on the weak leg, let your hands support your weight as you raise your strong leg onto the next higher step. Transfer all your weight to your strong leg (still bent) as you move the crutches up to the next step alongside the strong leg. With your weight evenly balanced on the two crutches and your strong leg, straighten your strong knee as you raise the weak leg up to the next step. Going Down Steps: ("Down with the bad") With both crutches on the same step as your feet, push down on the handgrips. With your weight evenly balanced on the two crutches and your strong leg, bend your strong knee as you lower the weak leg down to the next step. Let your strong leg support you (still bent) as you move the crutches down alongside the weak leg. Transfer your weight to your hands, balancing with very light pressure on the weak leg as you lower your strong leg alongside your weak leg. Knee Immobilizer A KNEE IMMOBILIZER is used to provide support and limit movement of the knee. This will make you more comfortable as your injury heals. Home Use: 1) Unless told otherwise, the knee brace should be worn whenever you are out of bed. You may wear it in bed while asleep for the first few nights or until the pain starts to go away. Otherwise, remove the brace at night to avoid muscle stiffness from lack of joint movement. 2) You can open the velcro brace to dress, bathe and apply ice packs as directed. Get Prompt Medical Attention if any of the following occur: -- Worsening pain in the knee -- Weakness or numbness or tingling in the foot -- Increased swelling, redness or warmth of the knee joint Hydrocodone Bitartrate, Acetaminophen Oral tablet What is this medicine? ACETAMINOPHEN; HYDROCODONE (a set a SHAMIR mau fen; maria m droe KOE done) is a pain reliever. It is used to treat mild to moderate pain. How should I use this medicine? Take this medicine by mouth. Swallow it with a full glass of water. Follow the directions on the prescription label. If the medicine upsets your stomach, take the medicine with food or milk. Do not take more than you are told to take. Talk to your audio visual aide regarding the use of this medicine in children. This medicine is not approved for use in children. What side effects may I notice from receiving this medicine? Side effects that you should report to your doctor or health wound care coordinator as soon as possible: allergic reactions like skin rash, itching or hives, swelling of the face, lips, or tongue breathing problems confusion feeling faint or lightheaded, falls stomach pain yellowing of the eyes or skin Side effects that usually do not require medical attention (report to your doctor or health wound care coordinator if they continue or are bothersome): nausea, vomiting stomach upset What may interact with this medicine? alcohol antihistamines isoniazid medicines for depression, anxiety, or psychotic disturbances medicines for sleep muscle relaxants naltrexone narcotic medicines (opiates) for pain phenobarbital ritonavir tramadol What if I miss a dose? If you miss a dose, take it as soon as you can. If it is almost time for your next dose, take only that dose. Do not take double or extra doses. Where should I keep my medicine? Keep out of the reach of children. This medicine can be abused. Keep your medicine in a safe place to protect it from theft. Do not share this medicine with anyone. Selling or giving away this medicine is dangerous and against the law. Store at room temperature between 15 and 30 degrees C (59 and 86 degrees F). Protect from light. Keep container tightly closed. Throw away any unused medicine after the expiration date. Discard unused medicine and used packaging carefully. Pets and children can be harmed if they find used or lost packages. What should I tell my health care provider before I take this medicine? They need to know if you have any of these conditions: brain tumor Crohn's disease, inflammatory bowel disease, or ulcerative colitis drink more than 3 alcohol-containing drinks per day drug abuse or addiction head injury heart or circulation problems kidney disease or problems going to the bathroom liver disease lung disease, asthma, or breathing problems an unusual or allergic reaction to acetaminophen, hydrocodone, other opioid analgesics, other medicines, foods, dyes, or preservatives or trying to get breast-feeding What should I watch for while using this medicine? Tell your doctor or health wound care coordinator if your pain does not go away, if it gets worse, or if you have new or a different type of pain. You may develop tolerance to the medicine. Tolerance means that you will need a higher dose of the medicine for pain relief. Tolerance is normal and is expected if you take the medicine for a long time. Do not suddenly stop taking your medicine because you may develop a severe reaction. Your body becomes used to the medicine. This does NOT mean you are addicted. Addiction is a behavior related to getting and using a drug for a non-medical reason. If you have pain, you have a medical reason to take pain medicine. Your doctor will tell you how much medicine to take. If your doctor wants you to stop the medicine, the dose will be slowly lowered over time to avoid any side effects. You may get drowsy or dizzy when you first start taking the medicine or change doses. Do not drive, use machinery, or do anything that may be dangerous until you know how the medicine affects you. Stand or sit up slowly. There are different types of narcotic medicines (opiates) for pain. If you take more than one type at the same time, you may have more side effects. Give your health care provider a list of all medicines you use. Your doctor will tell you how much medicine to take. Do not take more medicine than directed. Call emergency for help if you have problems breathing. The medicine will cause constipation. Try to have a bowel movement at least every 2 to 3 days. If you do not have a bowel movement for 3 days, call your doctor or health wound care coordinator. Too much acetaminophen can be very dangerous. Do not take Tylenol (acetaminophen) or medicines that contain acetaminophen with this medicine. Many non-prescription medicines contain acetaminophen. Always read the labels carefully. You have been given the following additional information: Knee Sprain Contusion, Lower Extremity Crutch Walking Knee Immobilizer Hydrocodone Bitartrate, Acetaminophen Oral tablet Do not go to school for four days. (Electronically signed by Kinza Hawthorne P.A.-C 06/16/2016 22:19)
--- NOTE | 2016-06-16 22:19 | ED MED RECONCILIATION SUMMARY ---
Patient: LOUIS WEISS Medication Reconciliation Report [facility] VisitID: [id number] [place] [address] 45y, F Registration Date/Time: 06/16/2016 Weight: 95.2 kg Height/Length: 65 in. BMI: 35.0 ALLERGIES: Amoxicillin, Baclofen, Erythromycin, Hydrochlorothiazide, Latex, Zofran The patient's Home Medications are listed below: THE FOLLOWING MEDICATIONS NEED TO BE RECONCILED: Albuterol Sulfate Inhalation Atrovent HFA Inhalation Flovent HFA Inhalation Levothyroxine Sodium Oral, daily Lisinopril Oral NexIUM Oral The source(s) of the original Home Medication information: Not obtained. The following Medications were given to the patient in the Emergency Department: Hydrocodone-APAP [PO] PO 2 tab, administered: 06/16/2016 8:31:00 PM The following Medications were prescribed to the patient: Hydrocodone/APAP 5mg / 325mg: take 1 orally every 6 hours as needed for pain. Dispense twelve (12). No refill. -- Kinza Hawthorne, P.A.-C Ibuprofen 800 mg tablets: take 1 tablet orally every 8 hours for 5 days, as needed for pain. Dispense fifteen (15). No refill. -- Kinza Hawthorne, P.A.-C
--- NOTE | 2016-06-16 22:19 | ED MAR SUMMARY ---
..... Medication Administration Record [facility] [address] [place] [address] Patient: LOUIS WEISS Visit ID: [id number] 45y, F Weight: 95.2 kg Height/Length: 65 in BMI: 35 ALLERGIES: Amoxicillin, Baclofen, Erythromycin, Hydrochlorothiazide, Latex, Zofran Given 20:31 06/16/2016 Mckinley Herrera R.N. Medication Administered: HYDROCODONE-APAP [PO] (HYDROCODONE-ACETAMINOPHEN), Dose: 2 tab 5/325 mg Tablets PO. Medication Ordered: Hydrocodone-APAP PO 10/650 mg (NOW, HIGH ALERT MEDICATION).
== END 2016-06-16 21:50 | disposition home or self-care (01) ==
LOC: ED SRH 20:01
DX: S83.91XA Sprain of unspecified site of right knee, initial encounter (principal); S80.01XA Contusion of right knee, initial encounter; W01.0XXA Fall on same level from slipping, tripping and stumbling without subsequent striking against object, initial encounter; Y93.9 Activity, unspecified; Y99.9 Unspecified external cause status; Y92.007 Garden or yard of unspecified non-institutional (private) residence as the place of occurrence of the external cause; Z86.718 Personal history of other venous thrombosis and embolism; I10 Essential (primary) hypertension; E07.9 Disorder of thyroid, unspecified; J45.909 Unspecified asthma, uncomplicated

== ENCOUNTER 2016-08-15 15:08 | Emergency (ER) | payer OTHER ==
--- NOTE | 2016-08-15 16:25 | DIAGNOSTIC IMAGING REPORT ---
PROCEDURE: XR CHEST 1 VIEW INDICATION: ASTHMA TECHNIQUE: Portable AP view 03:34 p.m. COMPARISON: Chest x-ray 05/30/2010 FINDINGS: Poor inspiration but lungs are clear. Heart and mediastinum are normal. Lower neck surgical clips. Thorax is normal. IMPRESSION: 1. Poor inspiration, otherwise negative chest
--- NOTE | 2016-08-15 16:26 | ED ORDER SUMMARY ---
..... Patient: LOUIS WEISS OrderSheet [facility] VisitID: [id number] [address] [place] [address] 45y, F Registration Date/Time: 08/15/2016 ORDER SHEET Weight: 90.2 kg (stated) Allergies: Amoxicillin, Baclofen, Erythromycin, Hydrochlorothiazide, Latex, Zofran GENERAL ORDERS: Chest 1V Urgent (15:26 08/15/2016 MCook R.N. per protocol) (Ack 15:29 Pau) (15:37 Elise) MEDICATION ORDERS: Albuterol Neb Tx 1 unit dose (NOW) (15:36 08/15/2016 MCook R.N. per protocol) (Ack 15:37 MCook R.N.) (15:38 MCook R.N.) IV FLUIDS: ORDER SHEET NOTES: [Electronically signed by Chelle Sarah R.N. (16:46 08/15/2016)] [Electronically signed by Harshil Ortiz MD (10:02 08/18/2016)] [Electronically locked/signed by Chelle Sarah R.N. (16:46 08/15/2016)]
--- NOTE | 2016-08-15 16:26 | ED ORDER SUMMARY ---
..... Patient: LOUIS WEISS OrderSheet [facility] VisitID: [id number] [address] [place] [address] 45y, F Registration Date/Time: 08/15/2016 ORDER SHEET Weight: 90.2 kg (stated) Allergies: Amoxicillin, Baclofen, Erythromycin, Hydrochlorothiazide, Latex, Zofran GENERAL ORDERS: Chest 1V Urgent (15:26 08/15/2016 MCook R.N. per protocol) (Ack 15:29 Pau) (15:37 Elise) MEDICATION ORDERS: Albuterol Neb Tx 1 unit dose (NOW) (15:36 08/15/2016 MCook R.N. per protocol) (Ack 15:37 MCook R.N.) (15:38 MCook R.N.) IV FLUIDS: ORDER SHEET NOTES: [Electronically signed by Chelle Sarah R.N. (16:46 08/15/2016)] [Electronically signed by Harshil Ortiz MD (10:02 08/18/2016)] [Electronically locked/signed by Chelle Sarah R.N. (16:46 08/15/2016)]
--- NOTE | 2016-08-15 16:26 | ED CLINICAL REPORT ---
Clinical Report - Physicians/Mid Levels [facility] [address] [place] [address] 08/15/2016 15:09 Patient: LOUIS WEISS Time Seen: 15:17. Arrived- By private vehicle. Historian- patient. HISTORY OF PRESENT ILLNESS Chief Complaint: DYSPNEA. This started last night and is still present. It was abrupt in onset and has been constant. The dyspnea is described as moderate. No cough, fever, sweating episodes, wheezing or chills. No chest pain or discomfort, calf pain or foot swelling. (she laid down last night and felt her throat closing up, had difficulty moving air. The same episode occurred this AM. Pt presents today mildly dyspneic, reports her albuterol inhaler has not helped the dyspnea at home. she and her both report having "cold" symptoms. She has had nasal congestion, postnasal drip and "plugged ears."). REVIEW OF SYSTEMS No calf pain, chest pain, pedal edema, palpitations or abdominal pain. No constipation, diarrhea, nausea, vomiting or urinary problems. All systems otherwise negative, except as recorded above. SOCIAL HISTORY Never smoker. No alcohol use or drug use. FAMILY HISTORY Denies family medical history. ADDITIONAL NOTES The nursing notes have been reviewed. PHYSICAL EXAM Vital Signs: 08/15/2016 15:14 BP: 156/109. HR: 81. RR: 22. O2 saturation: 97%. Temp: 98.2 F. Pain level now: 0/10. Have been reviewed. Appearance: Alert. No acute distress. Eyes: Pupils equal, round and reactive to light. ENT: Ears normal. Pharynx normal. Uvula midline. No nasal discharge or pharyngeal erythema. (She had swelling and [place]vel[place] appearance of her nasal and pharyngeal mucosa with lymphoid hyperplasia noted). Neck: Normal inspection. Neck supple. CVS: Normal heart rate and rhythm. Heart sounds normal. Respiratory: No respiratory distress. Breath sounds normal. Abdomen: Soft and nontender. No organomegaly. Back: Normal inspection. Skin: Skin warm and dry. Normal skin color. Normal skin turgor. Extremities: Extremities exhibit normal ROM. No calf tenderness. No lower extremity edema. PROGRESS AND PROCEDURES Course of Care: Patient is stable. Patient/family counseled. Old medical records reviewed. Disposition: Discharged. Condition: stable. CLINICAL IMPRESSION Asthma. Acute rhinitis and laryngitis. INSTRUCTIONS Avoid tobacco smoke. Warnings: GENERAL WARNINGS: Return or contact your physician immediately if your condition worsens or changes unexpectedly, if not improving as expected, or if other problems arise. Prescription Medications: Albuterol HFA oral inhaler: inhale 2 puffs via spacer every 4 hours. OTC Medications: Afrin nasal spray (Available over the counter): 1 spray to each nostril twice daily for 3 days, for congestion. Follow-up: Follow up with your doctor RASHEED BOND as needed. Call for an appointment. (Electronically signed by Harshil Ortiz MD 08/18/2016 10:02)
--- NOTE | 2016-08-15 16:26 | ED CLINICAL REPORT ---
Clinical Report - Physicians/Mid Levels [facility] [address] [place] [address] 08/15/2016 15:09 Patient: LOUIS WEISS Time Seen: 15:17. Arrived- By private vehicle. Historian- patient. HISTORY OF PRESENT ILLNESS Chief Complaint: DYSPNEA. This started last night and is still present. It was abrupt in onset and has been constant. The dyspnea is described as moderate. No cough, fever, sweating episodes, wheezing or chills. No chest pain or discomfort, calf pain or foot swelling. (she laid down last night and felt her throat closing up, had difficulty moving air. The same episode occurred this AM. Pt presents today mildly dyspneic, reports her albuterol inhaler has not helped the dyspnea at home. she and her both report having "cold" symptoms. She has had nasal congestion, postnasal drip and "plugged ears."). REVIEW OF SYSTEMS No calf pain, chest pain, pedal edema, palpitations or abdominal pain. No constipation, diarrhea, nausea, vomiting or urinary problems. All systems otherwise negative, except as recorded above. SOCIAL HISTORY Never smoker. No alcohol use or drug use. FAMILY HISTORY Denies family medical history. ADDITIONAL NOTES The nursing notes have been reviewed. PHYSICAL EXAM Vital Signs: 08/15/2016 15:14 BP: 156/109. HR: 81. RR: 22. O2 saturation: 97%. Temp: 98.2 F. Pain level now: 0/10. Have been reviewed. Appearance: Alert. No acute distress. Eyes: Pupils equal, round and reactive to light. ENT: Ears normal. Pharynx normal. Uvula midline. No nasal discharge or pharyngeal erythema. (She had swelling and cleveland appearance of her nasal and pharyngeal mucosa with lymphoid hyperplasia noted). Neck: Normal inspection. Neck supple. CVS: Normal heart rate and rhythm. Heart sounds normal. Respiratory: No respiratory distress. Breath sounds normal. Abdomen: Soft and nontender. No organomegaly. Back: Normal inspection. Skin: Skin warm and dry. Normal skin color. Normal skin turgor. Extremities: Extremities exhibit normal ROM. No calf tenderness. No lower extremity edema. PROGRESS AND PROCEDURES Course of Care: Patient is stable. Patient/family counseled. Old medical records reviewed. Disposition: Discharged. Condition: stable. CLINICAL IMPRESSION Asthma. Acute rhinitis and laryngitis. INSTRUCTIONS Avoid tobacco smoke. Warnings: GENERAL WARNINGS: Return or contact your physician immediately if your condition worsens or changes unexpectedly, if not improving as expected, or if other problems arise. Prescription Medications: Albuterol HFA oral inhaler: inhale 2 puffs via spacer every 4 hours. OTC Medications: Afrin nasal spray (Available over the counter): 1 spray to each nostril twice daily for 3 days, for congestion. Follow-up: Follow up with your doctor RASHEED BOND as needed. Call for an appointment. (Electronically signed by Harshil Ortiz MD 08/18/2016 10:02)
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
--- NOTE | 2016-08-18 10:02 | ED DISCHARGE INSTRUCTIONS ---
Patient: LOUIS WEISS General Instructions [facility] VisitID: [id number] [place] [address] 45y, F Registration Date/Time: 08/15/2016 Asthma. Acute rhinitis and laryngitis. INSTRUCTIONS Avoid tobacco smoke. Warnings: GENERAL WARNINGS: Return or contact your physician immediately if your condition worsens or changes unexpectedly, if not improving as expected, or if other problems arise. Prescription Medications: Albuterol HFA oral inhaler: inhale 2 puffs via spacer every 4 hours. OTC Medications: Afrin nasal spray (Available over the counter): 1 spray to each nostril twice daily for 3 days, for congestion. Follow-up: Follow up with your doctor RASHEED BOND as needed. Call for an appointment. ADDITIONAL INFORMATION Asthma [Adult] Asthma is a disease where the small air passages within the lung go into spasm and restrict the flow of air. Inflammation and swelling of the airways cause further restriction. During an acute asthma attack, these factors cause difficulty breathing, wheezing, cough and chest tightness. An asthma attack can be triggered by many things. Common triggers include the common cold, bronchitis, pneumonia, irritants such as smoke or pullutants in the air, emotional upset and heavy exercise. Inmany adults with asthma, allergies todust, mold, pollen and animal dander can cause an asthma attack. Skipping doses of daily asthma medicine can also bring on an asthma attack. Asthma can be controlled with proper medicines and decreased exposure to known allergens. Home Care: Take prescribed medicine exactly at the times advised. If you have a hand-held inhaler or aerosol breathing medicine, do not use it more than once every four hours, unless told to do so. (If you need this medicine more than every four hours, you may need to return to the Emergency Room.) If prescribed an antibiotic or prednisone, take all of the medicine even if you are feeling better after a few days. Do not smoke. Avoid being exposed to the smoke of others. Some persons with asthma have worsening of their symptoms when they take aspirin and non-steroidal medicines like ibuprofen (Motrin, Advil) and naproxen (Aleve, Naprosyn). Talk to your doctor if you think this may apply to you. Acetaminophen (Tylenol)should be safe to use. Follow Up with your doctor, or as advised by our staff. Always bring all of your current medicines with you for your doctor to see. If you do not already have one, talk to your doctor about developing a personalized "Asthma Action Plan." [NOTE: A pneumococcal vaccine and yearly flu shot (every fall) are recommended. Ask your doctor about this.] Get Prompt Medical Attention if any of the following occur: Increased wheezing or shortness of breath Need to use your inhalers more often than usual without relief Fever of 100.4F (38C) or higher, or as directed by your healthcare provider Coughing up lots of dark-colored or bloody sputum (mucus) Chest pain with each breath You do not start to improve within 24 hours Call 911 If Any Of The Following Occur : Trouble walking or talking because of shortness of breath If you use a peak flow meter andyou are still in the red zone (less than 50 percent) 15 minutes after using inhaler medication Lips or fingernails turning [place] or blue Viral Respiratory Illness [Adult] You have an Upper Respiratory Illness (URI) caused by a virus. This illness is contagious during the first few days. It is spread through the air by coughing and sneezing or by direct contact (touching the sick person and then touching your own eyes, nose or mouth). Most viral illnesses go away within 7-10 days with rest and simple home remedies. Sometimes, the illness may last for several weeks. Antibiotics will not kill a virus and are generally not prescribed for this condition. Home Care: 1) If symptoms are severe, rest at home for the first 2-3 days. When you resume activity, don't let yourself get too tired. 2) Avoid being exposed to cigarette smoke (yours or others). 3) Tylenol (acetaminophen) or ibuprofen (Advil, Motrin) will help fever, muscle aching and headache. (Persons under 18 with fever should not take aspirin since this may cause liver damage.) 4) Your appetite may be poor, so a light diet is fine. Avoid dehydration by drinking 6-8 glasses of fluids per day (water, soft drinks, juices, tea, soup). Extra fluids will help loosen secretions in the nose and lungs. 5) Hxug-ydi-alskfhl cold medicines will not shorten the length of time youre sick, but they may be helpful for the following symptoms: cough (Robitussin DM); sore throat (Chloraseptic lozenges or spray); nasal and sinus congestion (Actifed, Sudafed, Chlortrimeton). Follow Up with your doctor or as advised if you dont improve over the next week. Get Prompt Medical Attention if any of the following occur: -- Cough with lots of colored sputum (mucus) or blood in your sputum -- Chest pain, shortness of breath, wheezing or have trouble breathing -- Severe headache; face, neck or ear pain -- Fever over 100.4 F (38.0 C) for more than three days -- You cant swallow due to throat pain You have been given the following additional information: Asthma, Acute (Adult) Uri, Viral, No Abx (Adult) (Electronically signed by Harshil Ortiz MD 08/18/2016 10:02)
--- NOTE | 2016-08-18 10:03 | ED MAR SUMMARY ---
..... Medication Administration Record [facility] [address] [place] [address] Patient: LOUIS WEISS Visit ID: [id number] 45y, F Weight: 90.2 kg Height/Length: 65 in BMI: 33.1 ALLERGIES: Amoxicillin, Baclofen, Erythromycin, Hydrochlorothiazide, Latex, Zofran Given 15:33 08/15/2016 Westley Machado R.N. Medication Administered: ALBUTEROL [NEB TX], Dose: 1 unit dose Nebulizer Neb TX. Medication Ordered: Albuterol Neb Tx 1 unit dose (NOW).
--- NOTE | 2016-08-18 10:03 | ED MAR SUMMARY ---
..... Medication Administration Record [facility] [address] [place] [address] Patient: LOUIS WEISS Visit ID: [id number] 45y, F Weight: 90.2 kg Height/Length: 65 in BMI: 33.1 ALLERGIES: Amoxicillin, Baclofen, Erythromycin, Hydrochlorothiazide, Latex, Zofran Given 15:33 08/15/2016 Westley Machado R.N. Medication Administered: ALBUTEROL [NEB TX], Dose: 1 unit dose Nebulizer Neb TX. Medication Ordered: Albuterol Neb Tx 1 unit dose (NOW).
--- NOTE | 2016-08-18 10:03 | ED MED RECONCILIATION SUMMARY ---
Patient: LOUIS WEISS Medication Reconciliation Report [facility] VisitID: [id number] [place] [address] 45y, F Registration Date/Time: 08/15/2016 Weight: 90.2 kg Height/Length: 65 in. BMI: 33.1 ALLERGIES: Amoxicillin, Baclofen, Erythromycin, Hydrochlorothiazide, Latex, Zofran The patient's Home Medications are listed below: THE FOLLOWING MEDICATIONS NEED TO BE RECONCILED: Albuterol Sulfate Inhalation Lasix Oral Levothyroxine Sodium Oral, daily Lisinopril Oral The source(s) of the original Home Medication information: Not obtained. The following Medications were given to the patient in the Emergency Department: Albuterol [Neb Tx] Neb TX 1 unit dose, administered: 08/15/2016 3:33:00 PM The following Medications were prescribed to the patient: Afrin nasal spray (Available over the counter): 1 spray to each nostril twice daily for 3 days, for congestion. -- Harshil Ortiz MD Albuterol HFA oral inhaler: inhale 2 puffs via spacer every 4 hours. -- Harshil Ortiz MD
--- NOTE | 2016-08-18 10:03 | ED MED RECONCILIATION SUMMARY ---
Patient: LOUIS WEISS Medication Reconciliation Report [facility] VisitID: [id number] [place] [address] 45y, F Registration Date/Time: 08/15/2016 Weight: 90.2 kg Height/Length: 65 in. BMI: 33.1 ALLERGIES: Amoxicillin, Baclofen, Erythromycin, Hydrochlorothiazide, Latex, Zofran The patient's Home Medications are listed below: THE FOLLOWING MEDICATIONS NEED TO BE RECONCILED: Albuterol Sulfate Inhalation Lasix Oral Levothyroxine Sodium Oral, daily Lisinopril Oral The source(s) of the original Home Medication information: Not obtained. The following Medications were given to the patient in the Emergency Department: Albuterol [Neb Tx] Neb TX 1 unit dose, administered: 08/15/2016 3:33:00 PM The following Medications were prescribed to the patient: Afrin nasal spray (Available over the counter): 1 spray to each nostril twice daily for 3 days, for congestion. -- Harshil Ortiz MD Albuterol HFA oral inhaler: inhale 2 puffs via spacer every 4 hours. -- Harshil Ortiz MD
== END 2016-08-15 16:43 | disposition home or self-care (01) ==
LOC: ED SRH 15:08
DX: J45.909 Unspecified asthma, uncomplicated (principal); J00 Acute nasopharyngitis [common cold]; J05.0 Acute obstructive laryngitis [croup]; Z88.1 Allergy status to other antibiotic agents; Z88.8 Allergy status to other drugs, medicaments and biological substances